=== PATIENT | male | born 1950 | race Caucasian/White ===

== ENCOUNTER 2017-10-14 08:54 | Emergency (ER) | payer OTHER ==
[2017-10-14 09:03] VITALS: BMI 21.5
[2017-10-14 09:08] VITALS: BP 146/86; PULSE 71; RESP 20; TEMP 98.3; O2SAT 99
--- NOTE | 2017-10-14 09:26 | C.PDOC ---
History Of Present Illness Pt is a 66 yr old male who states that his colored his hair on Monday with a hair dye that he had never used before. Then on Monday, he noticed several scabbed areas throughout his scalp. His scalp is not painful, but he is concerned about all the scabs on his scalp. He also noticed that there was some puffiness around his eyes but no eye itchiness or draining. No blurry vision and pt denies eye pain. No fever. No itchiness to the scalp. Pt states that when he was having his hair colored, that none of the hair dye dripped into his eyes. Pt w/ no other complaints. PMD: Dr. Juan Young / Time Seen by Provider: 10/14/17 09:11 Chief Complaint (Nursing): Eye Problem History Per: Patient Onset/Duration Of Symptoms: Days Current Symptoms Are (Timing): Still Present Severity: Mild Past Medical History Reviewed: Historical Data, Nursing Documentation, Vital Signs Vital Signs: Last Vital Signs Temp 98.3 F 10/14/17 09:04 Pulse 71 10/14/17 09:04 Resp 20 10/14/17 09:04 BP 146/86 10/14/17 09:04 Pulse Ox 99 10/14/17 09:36 - Medical History PMH: HTN, Hypercholesterolemia Family History: States: CAD, Hypertension - Social History Hx Tobacco Use: No Hx Alcohol Use: No Hx Substance Use: No - Immunization History Hx Tetanus Toxoid Vaccination: No Hx Influenza Vaccination: Yes Hx Pneumococcal Vaccination: No Review Of Systems Except As Marked, All Systems Reviewed And Found Negative. Constitutional: Negative for: Fever Eyes: Negative for: Pain, Vision Change, Conjunctivae Inflammation Respiratory: Negative for: Shortness of Breath Physical Exam - Physical Exam Appears: Well, Non-toxic, No Acute Distress Skin: Other (patient's scalp is inflamed and with some dry, scabbed regions; no bleeding and no drainage) Head: Other (see skin section) Eye(s): bilateral: PERRL, EOMI, Other (Conjunctiva are not red or inflamed; no drainage from eyes; there is some periorbital edema around the right eye but no warmth or redness) Ear(s): Bilateral: Normal Nose: Normal Oral Mucosa: Moist Tongue: Normal Appearing Neck: Normal ED Course And Treatment O2 Sat by Pulse Oximetry: 99 Medical Decision Making Medical Decision Making: Initial Impression: Chemical burn to scalp with some right side periorbital edema. In regards to the periorbital edema, I suspect that residual hair dye is on his pillow case and irritating his skin around his eyes. (Advised to wash the pillow case) Initial Plan: Baby shampoo. Will give antibiotics as I am worried a secondary skin infection could occur. Will also give Zaditor eye drops. Disposition Counseled Patient/Family Regarding: Need For Followup, Rx Given - Disposition Referrals: Allan Garcia [Staff Provider] - Juan Young DO [Staff Provider] - Disposition: HOME/ ROUTINE Disposition Time: 09:21 Condition: STABLE Additional Instructions: Mr. Khan, thank you for letting us take care of you today. Return to the ER if your symptoms worsen, or if any problems. It appears as if you are having a reaction to the hair dye you used on Monday (mild chemical burn and irritation). You should also wash your pillow case as the residual dye could be on your pillow case irritating the skin on your face/near the eye. Take the medication listed below. Use a very gentle shampoo for the next couple of weeks (such as baby shampoo). You should also follow up with the eye doctor (Dr. Garcia)--call the phone number listed below to make an appointment. You should also follow up with Dr. Juan Young (your primary care physician) next week for a re-evaluation. Prescriptions: Cephalexin [Keflex] 1 tab PO QID #28 capsule Ketotifen Fumarate [Zaditor] 1 drop BOTHEYES BID #1 bottle Instructions: Chemical Exposure to the Skin (DC) Forms: General Discharge Instructions Print Language: HUNGARIAN - POA Present On Arrival: None - Clinical Impression Clinical Impression: Superficial chemical burn of scalp, Periorbital edema of right eye
== END 2017-10-14 09:35 | disposition home or self-care (01) ==
LOC: C.ER 08:54
DX: T49.4X1A Poisoning by keratolytics, keratoplastics, and other hair treatment drugs and preparations, accidental (unintentional), initial encounter (principal); T20.45XA Corrosion of unspecified degree of scalp [any part], initial encounter; H05.221 Edema of right orbit